=== PATIENT | female | born 1925 | race Caucasian/White ===

== ENCOUNTER 2016-10-12 13:51 | Outpatient (CLI) | payer OTHER ==
[~2016-10-12 13:51] MED LIST: AMIL5TAB9 PO; ATOR10TA68 PO; CLOP75TA2 PO; LEVO25TA7 PO; LOSA100T11 PO; MAGN400T10 PO; PARO-41 PO; POTA10CA68 PO
== END 2016-10-12 18:58 | disposition home or self-care (01) ==
LOC: SRD 13:51
PROVIDERS: ATTEND Internal Medicine
DX: R06.02 Shortness of breath (principal); I51.7 Cardiomegaly
CPT/HCPCS: 71020-TC